=== PATIENT | female | born 1945 | race Hispanic/Latino ===

== ENCOUNTER 2016-12-16 05:28 | Emergency (ER) | payer MEDICARE, OTHER ==
[2016-12-16 05:37] VITALS: BMI 32.9
[2016-12-16 05:44] VITALS: RESP 18
--- NOTE | 2016-12-16 06:22 | ED PDOC ---
Arrival/HPI - General Chief Complaint: High Blood Pressure Time Seen by Provider: 12/16/16 05:45 Historian: Patient - History of Present Illness Narrative History of Present Illness (Text): 12/16/16 06:17 Concha Brown is a 71 year old female, whose past medical history includes hypertension and nephrectomy, who presents to the emergency department complaining of high blood pressure. Patient states she forgot to take her hypertension medication yesterday evening and woke up this morning with palpitations and right-sided headache. Patient took her blood pressure at home and noted it was elevated at 180 systolic. Patient states she took her medication this morning and notes some relief. Patient denies any fever, chills , chest pain, shortness of breath, nausea, vomiting, diarrhea, urinary symptoms , back pain, neck pain, dizziness, or any other complaints. Time/Duration: Other (today) Symptom Onset: Gradual Symptom Course: Unchanged Activities at Onset: Rest, Light Context: Home Past Medical History - Provider Review Nursing Documentation Reviewed: Yes - Infectious Disease Hx of Infectious Diseases: None - Reproductive Menopause: Yes - Cardiac Hx Hypertension: Yes - Neurological Hx Migraine: Yes - Renal Other/Comment: only 1 kidney - Gastrointestinal Hx Gastroesophageal Reflux: Yes - Psychiatric Hx Substance Use: No - Surgical History Other/Comment: kidney donor - Anesthesia Hx Anesthesia: Yes Hx Anesthesia Reactions: No Hx Malignant Hyperthermia: No Family/Social History - Physician Review Nursing Documentation Reviewed: Yes Family/Social History: No Known Family HX Smoking Status: Never Smoked Hx Alcohol Use: No Hx Substance Use: No Allergies/Home Meds Allergies/Adverse Reactions: Allergies acetaminophen [From Tylenol] Allergy (Verified 12/16/16 05:38) DIZZINESS hypotension cat dander Allergy (Verified 12/16/16 05:38) ITCHING codeine phosphate [From Tylenol-Codeine #3] Allergy (Verified 12/16/16 05:38) DIZZINESS hypotension Penicillins Allergy (Verified 12/16/16 05:38) DIZZINESS strawberry Allergy (Verified 12/16/16 05:38) RASH Review of Systems - Physician Review All systems were reviewed & negative as marked: Yes - Review of Systems Constitutional: Normal. absent: Fevers Eyes: Normal ENT: Normal Respiratory: Normal. absent: SOB, Cough Cardiovascular: Palpitations, Other (+high blood pressure). absent: Chest Pain Gastrointestinal: Normal. absent: Abdominal Pain, Diarrhea, Nausea, Vomiting Genitourinary Female: Normal. absent: Dysuria, Frequency, Hematuria, Urine Output Changes Musculoskeletal: Normal. absent: Back Pain, Neck Pain Skin: Normal. absent: Other Neurological: Headache. absent: Dizziness Endocrine: Normal Hemo/Lymphatic: Normal Psychiatric: Normal Physical Exam Vital Signs Reviewed: Yes Vital Signs Temp Pulse Resp BP Pulse Ox 12/16/16 05:42 97.9 F 78 18 179/79 H 99 Temperature: Afebrile Blood Pressure: Hypertensive Pulse: Regular Respiratory Rate: Normal Appearance: Positive for: Well-Appearing, Non-Toxic, Comfortable Pain Distress: None Mental Status: Positive for: Alert and Oriented X 3 - Systems Exam Head: Present: Atraumatic, Normocephalic Pupils: Present: PERRL Extroacular Muscles: Present: EOMI Conjunctiva: Present: Normal Mouth: Present: Moist Mucous Membranes Neck: Present: Normal Range of Motion Respiratory/Chest: Present: Clear to Auscultation, Good Air Exchange. No: Respiratory Distress, Accessory Muscle Use Cardiovascular: Present: Regular Rate and Rhythm, Normal S1, S2. No: Murmurs Abdomen: Present: Normal Bowel Sounds. No: Tenderness, Distention, Peritoneal Signs Back: Present: Normal Inspection Upper Extremity: Present: Normal Inspection. No: Cyanosis, Edema Lower Extremity: Present: Normal Inspection. No: Edema Neurological: Present: GCS=15, CN II-XII Intact, Speech Normal Skin: Present: Warm, Dry, Normal Color. No: Rashes Psychiatric: Present: Alert, Oriented x 3, Normal Insight, Normal Concentration Medical Decision Making ED Course and Treatment: 12/16/16 06:17 Impression: 71 year old female complaining of high blood pressure, palpitations, and headache. Plan: -- EKG -- CXR -- Labs, cardiac enzymes -- Reassess and disposition Progress Notes: Reviewed EKG, NSR at [address]-segment elevations or depressions, no T-wave inversions, normal intervals. - RAD Interpretation Radiology Orders: 12/16/16 06:22 CHEST PORTABLE [RAD] Stat - EKG Interpretation Interpreted by ED Physician: Yes Type: 12 lead EKG - Transfer of Care Patient signed out to Dr:: Gia Pending Labs:: Labs/CXR/EKG/reassess/final disposition - Scribe Statement The provider has reviewed the documentation as recorded by the Scribe Becca Mainor Provider Attestation: All medical record entries made by the Micah were at my direction and personally dictated by me. I have reviewed the chart and agree that the record accurately reflects my personal performance of the history, physical exam, medical decision making, and the department course for this patient. I have also personally directed, reviewed, and agree with the discharge instructions and disposition. Disposition/Present on Arrival - Present on Arrival Any Indicators Present on Arrival: No History of DVT/PE: No History of Uncontrolled Diabetes: No Urinary Catheter: No History of Decub. Ulcer: No History Surgical Site Infection Following: None - Disposition Have Diagnosis and Disposition been Completed?: No Diagnosis: Hypertension, Palpitations Disposition Time: 07:00 Condition: STABLE
[2016-12-16 07:11] LABS: HEMATOCRIT 38.9 % (36.0-48.0); MEAN CELL VOLUME 86.4 fL (80.0-105.0); MEAN CORPUSCULAR HEMOGLOBIN 29.1 pg (25.0-35.0); MEAN CORPUSCULAR HGB CONC 33.7 g/dl (31.0-37.0); RED CELL DISTRIBUTION WIDTH 13.9 % (11.5-14.5)
[2016-12-16 07:17] LABS: ALB/GLOB RATIO 1.2 (1.1-1.8); ALKALINE PHOSPHATASE 64 U/L (38-133); ALT/SGPT 30 U/L (7-56); AST/SGOT 42 U/L (15-39); BILIRUBIN,TOTAL 0.5 mg/dL (0.2-1.3); BLOOD UREA NITROGEN 18 mg/dL (7-21); CARBON DIOXIDE 26 mmol/L (21-33); CHLORIDE 105 mmol/L (95-110); GFR AFRICAN-AMERICAN > 60; GLUCOSE,RANDOM 99 mg/dL (70-110); SODIUM 142 mmol/L (132-148); TOTAL PROTEIN 7.9 g/dL (5.8-8.3)
--- NOTE | 2016-12-16 07:40 | ED PDOC ---
Physical Exam - Physical Exam Narrative Physical Exam (Text): Physical exam Patient appears age appropriate in no distress, speaking full sentences without difficulty - Systems Exam Head: Present: Atraumatic, Normocephalic Pupils: Present: PERRL Extroacular Muscles: Present: EOMI Conjunctiva: Present: Normal Mouth: Present: Moist Mucous Membranes Neck: Present: Normal Range of Motion. No: MIDLINE TENDERNESS, Paraspinal Tenderness Respiratory/Chest: Present: Clear to Auscultation, Good Air Exchange. No: Respiratory Distress, Accessory Muscle Use, Tachypneic Cardiovascular: Present: Regular Rate and Rhythm, Normal S1, S2, Peripheal Pulses Present. No: Murmurs Abdomen: Present: Normal Bowel Sounds. No: Tenderness, Distention, Peritoneal Signs, Rebound, Guarding Back: Present: Normal Inspection. No: Midline Tenderness, Paraspinal Tenderness Upper Extremity: Present: Normal Inspection. No: Cyanosis, Edema Lower Extremity: Present: Normal Inspection. No: Edema Neurological: Present: GCS=15, Speech Normal, cranial nerves II through XII fully intact with no cerebellar abnormality, neurosensory fully intact. No focal neurological deficits. Skin: Present: Warm, Dry, Normal Color. No: Rashes Lymphatic: Present: OX3, NI, NC Psychiatric: Present: Alert, Oriented x 3, Normal Insight, Normal Concentration Vital Signs Reviewed: Yes Vital Signs Temp Pulse Resp BP Pulse Ox 12/16/16 08:00 70 18 167/82 H 97 12/16/16 05:42 97.9 F 78 18 179/79 H 99 Temperature: Afebrile Blood Pressure: Hypertensive Pulse: Regular Respiratory Rate: Normal Appearance: Positive for: Well-Appearing Pain Distress: None Medical Decision Making ED Course and Treatment: 12/16/16 07:39 Signout from overnight, patient with a history of hypertension admits to noncompliance with her antihypertensives medications, presents the emergency department with elevated blood pressure reading at home. Contrary to previous note, patient denies having any palpitations or heart symptoms. Patient states that she checked her heart rate on the blood pressure monitor and it read 95. Patient denies any chest pain, shortness of breath, dyspnea on exertion, palpitations. Patient currently is asymptomatic and denies any complaints, states that she feels well and would like to be discharged home. Patient states that she has a primary physician with whom she will be able to follow-up in the next 1-2 days. EKG interpreted by ER physician. Normal sinus. No ST-segment elevations. Normal intervals. 12/16/16 08:24 Chest xray interpreted by ED physician shows no pneumothorax, no cardiomegaly, no infiltrates On reevaluation, patient remains asymptomatic. Patient denies any headache, denies blurry vision or shortness of breath, denies chest pain or dyspnea exertion. Patient has no focal neurological deficits. Patient instructed to follow-up with her primary physician Pt states she understands to return to the ER right away for new or worsening symptoms or for inability to f/u with PMD or specialist as instructed. Patient states that she fully agrees with and understands discharge instructions. States that she agrees with the plan and disposition. Verbalized and repeated discharge instructions and plan. I have given the patient opportunity to ask any additional questions. - Lab Interpretations Lab Results: 12/16/16 06:22 12/16/16 06:22 Lab Results 12/16/16 06:22: WBC 4.0 L, RBC 4.50, Hgb 13.1, Hct 38.9, MCV 86.4, MCH 29.1, MCHC 33.7, RDW 13.9, Plt Count 227, MPV 11.0, Sodium 142, Potassium 4.0, Chloride 105, Carbon Dioxide 26, Anion Gap 15, BUN 18, Creatinine 1.0, Est GFR ( Amer) > 60, Est GFR (Non-Af Amer) 55, Random Glucose 99, Calcium 10.0, Total Bilirubin 0.5, AST 42 H, ALT 30, Alkaline Phosphatase 64, Lactate Dehydrogenase 499, Total Creatine Kinase 84, Troponin I < 0.01, Total Protein 7.9, Albumin 4.3, Globulin 3.6, Albumin/Globulin Ratio 1.2 - RAD Interpretation Radiology Orders: 12/16/16 06:22 CHEST PORTABLE [RAD] Stat Disposition/Present on Arrival - Present on Arrival Any Indicators Present on Arrival: No History of DVT/PE: No History of Uncontrolled Diabetes: No Urinary Catheter: No History of Decub. Ulcer: No History Surgical Site Infection Following: None - Disposition Have Diagnosis and Disposition been Completed?: Yes Diagnosis: Hypertension Disposition: HOME/ ROUTINE Disposition Time: 08:26 Patient Plan: Discharge Patient Problems: Current Active Problems Problem Status Diagnosed Hypertension Acute Palpitations Acute Condition: STABLE Discharge Instructions (ExitCare): Hypertension (ED) Additional Instructions: PLEASE RETURN TO THE EMERGENCY DEPARTMENT FOR NEW OR WORSENING SYMPTOMS. RETURN RIGHT AWAY IF YOU CANNOT FOLLOW UP WITH YOUR PRIMARY CARE DOCTOR, CLINIC, OR SPECIALIST IN 1-2 DAYS.
[2016-12-16 07:45] LABS: TROPONIN I < 0.01 ng/mL
[2016-12-16 08:23] VITALS: BP 167/82; PULSE 70; O2SAT 97
[2016-12-16 08:36] VITALS: TEMP 98.4
--- NOTE | 2016-12-16 08:40 | RAD ---
HISTORY: palpitations COMPARISON: No prior. FINDINGS: LUNGS: No active pulmonary disease. PLEURA: No significant pleural effusion identified, no pneumothorax apparent. CARDIOVASCULAR: Normal. OSSEOUS STRUCTURES: No significant abnormalities. VISUALIZED UPPER ABDOMEN: Normal. OTHER FINDINGS: None. IMPRESSION: No active disease.
--- NOTE | 2016-12-16 12:44 | CARD ---
APPROVED REPORT EKG Measurement Heart [id number] <Conclusion> Normal sinus rhythm Normal ECG
== END 2016-12-16 08:50 | disposition home or self-care (01) ==
LOC: ED 05:28
DX: I10 Essential (primary) hypertension (principal); R00.2 Palpitations; Z90.5 Acquired absence of kidney

== ENCOUNTER 2018-09-16 08:57 | Outpatient (CLI) | payer MEDICARE, OTHER | END 2018-09-16 08:58 | disposition home or self-care (01) | LOC: RAD 08:57 ==

== ENCOUNTER 2019-01-16 20:15 | Observation (INO) | payer MEDICARE, OTHER ==
[2019-01-16 20:23] VITALS: BMI 33.5
[2019-01-16] MEDS ORDERED: DiphenhydrAMINE 50 mg/ml Inj IVP ONE (20:33)
[2019-01-16 20:50] LABS: HEMOGLOBIN 13.4 g/dL (12.0-16.0); MEAN CORPUSCULAR HEMOGLOBIN 28.3 pg (25.0-35.0); MEAN CORPUSCULAR HGB CONC 32.9 g/dl (31.0-37.0); MEAN PLATELET VOLUME 10.8 fl (7.0-11.0); RBC 4.73 10^6/uL (3.5-6.1); RED CELL DISTRIBUTION WIDTH 14.1 % (11.5-14.5); WHITE BLOOD COUNT 7.7 10^3/uL (4.5-11.0)
[2019-01-16 20:56] LABS: INR 1.05; PROTHROMBIN TIME 11.6 SECONDS (9.4-12.5)
[2019-01-16 21:00] LABS: ALB/GLOB RATIO 1.5 (1.1-1.8); ALBUMIN 4.6 g/dL (3.0-4.8); ALT/SGPT 16 U/L (7-56); AST/SGOT 33 U/L (14-36); BLOOD UREA NITROGEN 19 mg/dL (7-21); CALCIUM 10.4 mg/dL (8.4-10.5); GFR NON-AFRICAN AMERICAN 49
[2019-01-16 21:11] LABS: TROPONIN I < 0.01 ng/mL
--- NOTE | 2019-01-16 21:31 | ED PDOC ---
Arrival/HPI - General Chief Complaint: Palpitations Time Seen by Provider: 01/16/19 20:21 Historian: Patient, Family - History of Present Illness Narrative History of Present Illness (Text): 01/16/19 20:30 73 year old female, whose past medical history includes hypertension and nephrectomy, who presents to the emergency complaining of episodes of chest tightness and palpitations the other day and again today associated with dyspnea on exertion. Patient's family states patient possibly may be anxious over a family matter. However, patient states the symptoms appear different. Patient also with slight rash to her neck that she just noticed, but denies any itchiness. Patient denies any fever, chills, cough, nausea, vomiting, diarrhea, urinary symptoms, back pain, neck pain, leg pain, headache, dizziness, or any other complaints. Time/Duration: 24 hours Symptom Course: Intermittent Activities at Onset: Light Context: Home Past Medical History - Provider Review Nursing Documentation Reviewed: Yes - Infectious Disease Hx of Infectious Diseases: None - Cardiac Hx Hypertension: Yes - Neurological Hx Migraine: Yes - Renal Other/Comment: only 1 kidney - Gastrointestinal Hx Gastroesophageal Reflux: Yes - Psychiatric Hx Substance Use: No - Surgical History Other/Comment: kidney donor - Anesthesia Hx Anesthesia: Yes Hx Anesthesia Reactions: No Hx Malignant Hyperthermia: No Family/Social History - Physician Review Nursing Documentation Reviewed: Yes Family/Social History: No Known Family HX Smoking Status: Never Smoked Hx Alcohol Use: Yes Frequency of alcohol use: Socially Hx Substance Use: No Allergies/Home Meds Allergies/Adverse Reactions: Allergies cat dander Allergy (Verified 01/16/19 20:23) ITCHING codeine phosphate [From Tylenol-Codeine #3] Allergy (Verified 01/16/19 20:23) DIZZINESS hypotension Penicillins Allergy (Verified 01/16/19 20:23) DIZZINESS strawberry Allergy (Verified 01/16/19 20:23) RASH ibuprofen Adverse Reaction (Verified 01/16/19 20:27) PAIN Patient only has one kidney and is advised by PMD to avoid nephro-toxic med ications. Home Medications: Home Meds Medication Instructions Recorded Confirmed Atorvastatin [Lipitor] 10 mg PO DIN 01/16/19 01/16/19 Cinacalcet [Sensipar] 30 mg PO DAILY 01/16/19 01/16/19 amLODIPine [Norvasc] 10 mg PO DAILY 01/16/19 01/16/19 Review of Systems - Physician Review All systems were reviewed & negative as marked: Yes - Review of Systems Constitutional: absent: Fevers, Other (chills) Cardiovascular: Chest Pain, Palpitations, CHRISTINA Gastrointestinal: absent: Diarrhea, Nausea, Vomiting Genitourinary Female: absent: Dysuria, Frequency, Hematuria Musculoskeletal: absent: Back Pain, Neck Pain, Other (leg pain) Skin: Rash. absent: Pruritis Neurological: absent: Headache, Dizziness Physical Exam Vital Signs Reviewed: Yes Vital Signs Temp Pulse Resp BP Pulse Ox 01/16/19 20:27 97.7 F 105 H 18 156/72 H 99 01/16/19 20:26 97.7 F 109 H 12 156/72 H 100 Temperature: Afebrile Blood Pressure: Hypertensive Pulse: Tachycardic Respiratory Rate: Normal Appearance: Positive for: Well-Appearing, Non-Toxic, Comfortable Pain Distress: None Mental Status: Positive for: Alert and Oriented X 3 - Systems Exam Head: Present: Atraumatic, Normocephalic Pupils: Present: PERRL Extroacular Muscles: Present: EOMI Conjunctiva: Present: Normal Mouth: Present: Moist Mucous Membranes Neck: Present: Normal Range of Motion Respiratory/Chest: Present: Clear to Auscultation, Good Air Exchange. No: Respiratory Distress, Accessory Muscle Use Cardiovascular: Present: Regular Rate and Rhythm, Normal S1, S2. No: Murmurs Abdomen: No: Tenderness, Distention, Peritoneal Signs Back: Present: Normal Inspection Upper Extremity: Present: Normal Inspection. No: Cyanosis, Edema Lower Extremity: Present: Normal Inspection. No: Edema Neurological: Present: GCS=15, Speech Normal Skin: Present: Warm, Dry, Normal Color, Erythematous (slight patchy erythematous flush to the neck ). No: Other (urticaria) Psychiatric: Present: Alert, Oriented x 3, Normal Insight, Normal Concentration Medical Decision Making ED Course and Treatment: 01/16/19 20:30 Impression: 73 year old female presents complaining of chest tightness and palpitations the other day and again today associated with dyspnea on exertion. Also noted a sl ight rash to her neck. Plan: -- EKG -- Labs -- Chest X-ray -- Benadryl -- Reassess and disposition Prior Visits: Notes and results from previous visits were reviewed. Progress Notes: 01/16/19 21:12 CXR Impression: As read by me, no acute process. 01/16/19 22:00 EKG shows Sinus Tachycardia at 110 [address]PM with non-specific st/t changes. Interpreted by me. 01/16/19 22:[address] Patel who is aware and agrees with the plan. Accepts patient into his service. - Lab Interpretations Lab Results: PT 11.6 SECONDS (9.4-12.5) 01/16/19 20:40 INR 1.05 01/16/19 20:40 APTT 34.0 Seconds (26.9-38.3) 01/16/19 20:40 D-Dimer, Quantitative < 200 ng/mlDDU (0-243) 01/16/19 20:40 Troponin I < 0.01 ng/mL 01/16/19 20:40 Total Bilirubin 0.7 mg/dL (0.2-1.3) 01/16/19 20:40 AST 33 U/L (14-36) 01/16/19 20:40 ALT 16 U/L (7-56) 01/16/19 20:40 Alkaline Phosphatase 80 U/L (38-126) 01/16/19 20:40 Total Protein 7.8 g/dL (5.8-8.3) 01/16/19 20:40 Albumin 4.6 g/dL (3.0-4.8) 01/16/19 20:40 Globulin 3.2 gm/dL 01/16/19 20:40 Albumin/Globulin Ratio 1.5 (1.1-1.8) 01/16/19 20:40 I have reviewed the lab results: Yes - RAD Interpretation Radiology Orders: 01/16/19 20:32 CHEST PORTABLE [RAD] Stat Dental Services Director: ED Physician - EKG Interpretation Interpreted by ED Physician: Yes Type: 12 lead EKG - Medication Orders Current Medication Orders: Discontinued Medications Diphenhydramine HCl (Benadryl) 25 mg IVP ONCE ONE Stop: 01/16/19 20:34 Last Admin: 01/16/19 20:50 Dose: Not Given Non-Admin Reason: Patient Refused - Scribe Statement The provider has reviewed the documentation as recorded by the Micah Ruffin Provider Scribe Attestation: All medical record entries made by the Scribe were at my direction and personally dictated by me. I have reviewed the chart and agree that the record accurately reflects my personal performance of the history, physical exam, medical decision making, and the department course for this patient. I have also personally directed, reviewed, and agree with the discharge instructions and disposition. Disposition/Present on Arrival - Present on Arrival Any Indicators Present on Arrival: No History of DVT/PE: No History of Uncontrolled Diabetes: No Urinary Catheter: No History of Decub. Ulcer: No History Surgical Site Infection Following: None - Disposition Have Diagnosis and Disposition been Completed?: Yes Diagnosis: Chest pain, Palpitations Disposition: HOSPITALIZED Disposition Time: 22:17 Patient Problems: Current Active Problems Problem Status Onset Chest pain Acute Palpitations Acute Condition: STABLE
--- NOTE | 2019-01-17 08:07 | CP.PCM.HP ---
<AlfredoTesfaye - Last Filed: 01/17/19 10:09> History of Present Illness - History of Present Illness History of Present Illness: Tesfaye Fuentes D.O. PGY-3, Internal Medicine Resident, Dr. Patel's Service, H&P CC: Chest discomfort and palpitations 73-year-old female with a past medical history of hypertension, hyperlipidemia, status post unilateral nephrectomy for donation to her brother who has a history of polycystic kidney disease, who presents for complaints of chest discomfort and palpitations earlier in the day. Patient denies ever having similar this before. Patient states she was planning a celebration for her granddaughter and was out getting supplies. Patient tried a small amount of a fruit wine that has been sampled. Patient then went home and the family ordered pizza. Patient states that she is unsure whether the wine or the pizza could have been responsible what shortly after ingesting these 2 things she began to have an unclear sensation come over her, states that she had palpitations, her arms are weak, and that her face was beet red. Patient states that she is allergic to some berries and it was a different one that may have contained berries. Otherwise unsure of any other potential exposures that could have caused this. Patient states it is a very small amount of wine. Patient denies pain per se, just the after mentioned symptoms. Patient does have a lot of stress at this time given that she is taking care of her who has Alzheimer's disease and diabetes. Patient states that he is a lot of work and is progressively becoming bedbound. This is a great source of stress and anxiety for her. Otherwise denies any fevers, chills, nausea, vomiting, diarrhea, constipation, lightheadedness, dizziness, chest pain, shortness of breath at this time, or other concerning symptoms. Is currently completely asymptomatic. States the episode was very quick. Of note, patient follows up with nephrology and endocrinology. Patient states that she is on cinacalcet because she has had high calcium in the past. When asked specifically if she has hyperparathyroidism patient states that she has been told by her primary medical doctor that she likely does have hyperparathyroidism. Patient is currently undergoing outpatient work-up for this. PMH: As above PSH: Oophorectomy, hysterectomy, nephrectomy SH: Denies smoking, social EtOH use only, denies illicit drug use FH: Denies Meds: Reviewed with patient Allergies: Cat dander, codeine, penicillins, strawberry, ibuprofen Present on Admission - Present on Admission Any Indicators Present on Admission: No Review of Systems - Review of Systems All systems: reviewed and no additional remarkable complaints except (as per HPI) Past Patient History - Infectious Disease Hx of Infectious Diseases: None - Past Social History Smoking Status: Never Smoked - CARDIAC Hx Cardiac Disorders: Yes Hx Hypercholesterolemia: Yes Hx Hypertension: Yes - PULMONARY Hx Respiratory Disorders: Yes Hx Bronchitis: Yes - NEUROLOGICAL Hx Neurological Disorder: Yes Hx Migraine: Yes (used to get cluster baker) - HEENT Hx HEENT Problems: No - RENAL Hx Chronic Kidney Disease: No Other/Comment: donated l kindey to brother - ENDOCRINE/METABOLIC Hx Endocrine Disorders: Yes Other/Comment: poss nodule on thyroid - HEMATOLOGICAL/ONCOLOGICAL Hx Blood Disorders: No - INTEGUMENTARY Hx Dermatological Problems: No - MUSCULOSKELETAL/RHEUMATOLOGICAL Hx Falls: No - GASTROINTESTINAL Hx Gastrointestinal Disorders: Yes Other/Comment: GERD - GENITOURINARY/GYNECOLOGICAL Hx Genitourinary Disorders: Yes Other/Comment: hysterect/ooprectomy/etopic preg - PSYCHIATRIC Hx Psychophysiologic Disorder: No - SURGICAL HISTORY Hx Surgeries: Yes Hx Hysterectomy: Yes Other/Comment: ooprectomy and etopic preg - ANESTHESIA Hx Anesthesia: Yes Hx Anesthesia Reactions: No Hx Malignant Hyperthermia: No Meds Home Medications: Home Medication List Medication Instructions Recorded Confirmed Type Metoprolol Tartrate [Lopressor] 12.5 mg PO BRKDIN #60 tab 01/17/19 Rx Allergies/Adverse Reactions: Allergies Allergy/AdvReac Type Severity Reaction Status Date / Time cat dander Allergy ITCHING Verified 01/16/19 20:23 codeine phosphate Allergy DIZZINESS Verified 01/16/19 20:23 [From Tylenol-Codeine #3] Penicillins Allergy DIZZINESS Verified 01/16/19 20:23 strawberry Allergy RASH Verified 01/16/19 20:23 ibuprofen AdvReac PAIN Verified 01/16/19 20:27 Physical Exam - Constitutional Appears: Non-toxic, No Acute Distress - Head Exam Head Exam: ATRAUMATIC, NORMOCEPHALIC - Eye Exam Eye Exam: EOMI, PERRL. absent: Scleral icterus - ENT Exam ENT Exam: Mucous Membranes Moist, Normal Oropharynx - Neck Exam Neck exam: Positive for: Normal Inspection. Negative for: Lymphadenopathy, Tenderness - Respiratory Exam Respiratory Exam: Clear to Auscultation Bilateral. absent: Rales, Rhonchi, Wheezes - Cardiovascular Exam Cardiovascular Exam: RRR, +S1, +S2. absent: Gallop, Rubs - GI/Abdominal Exam GI & Abdominal Exam: Normal Bowel Sounds, Soft. absent: Distended, Tenderness - Extremities Exam Extremities exam: Positive for: normal capillary refill, pedal edema (trace). Negative for: calf tenderness - Neurological Exam Neurological exam: Alert, CN II-XII Intact, Oriented x3 - Psychiatric Exam Psychiatric exam: Normal Affect, Normal Mood - Skin Skin Exam: Dry, Warm Results - Vital Signs Recent Vital Signs: Last Vital Signs Temp 97.8 F 01/17/19 00:59 Pulse 85 01/17/19 05:59 Resp 18 01/17/19 01:21 BP 126/84 01/17/19 00:59 Pulse Ox 96 01/17/19 00:59 - Labs Result Diagrams: 01/16/19 20:40 01/16/19 20:40 Labs: Laboratory Results - last 24 hr 01/16/19 01/16/19 01/16/19 20:40 20:40 20:40 WBC RBC Hgb Hct MCV MCH MCHC RDW Plt Count MPV PT 11.6 INR 1.05 APTT 34.0 D-Dimer, Quantitative < 200 Sodium 139 Potassium 3.7 Chloride 103 Carbon Dioxide 25 Anion Gap 14 BUN 19 Creatinine 1.1 Est GFR ( Amer) 59 Est GFR (Non-Af Amer) 49 Random Glucose 157 H Calcium 10.4 Total Bilirubin 0.7 AST 33 ALT 16 Alkaline Phosphatase 80 Lactate Dehydrogenase 555 Total Creatine Kinase 175 Troponin I < 0.01 Total Protein 7.8 Albumin 4.6 Globulin 3.2 Albumin/Globulin Ratio 1.5 01/16/19 20:40 WBC 7.7 RBC 4.73 Hgb 13.4 Hct 40.7 MCV 86.0 MCH 28.3 MCHC 32.9 RDW 14.1 Plt Count 252 MPV 10.8 PT INR APTT D-Dimer, Quantitative Sodium Potassium Chloride Carbon Dioxide Anion Gap BUN Creatinine Est GFR ( Amer) Est GFR (Non-Af Amer) Random Glucose Calcium Total Bilirubin AST ALT Alkaline Phosphatase Lactate Dehydrogenase Total Creatine Kinase Troponin I Total Protein Albumin Globulin Albumin/Globulin Ratio Assessment & Plan - Assessment and Plan (Free Text) Assessment: 73-year-old female with a past medical history of hypertension, hyperlipidemia, status post unilateral nephrectomy for donation to her brother who has a history of polycystic kidney disease, who presents for complaints of chest discomfort and palpitations earlier in the day. Plan: 1. Chest discomfort and palpitations 2. Hypertension 3. Hyperlipidemia 4. Status post nephrectomy 5. Obesity Patient placed in observation. Troponin is negative x1. Will repeat. EKG revealed sinus tachycardia. On telemetry patient now in normal sinus rhythm. Etiology likely noncardiac in nature however we will obtain a cardiology consultation. We will continue amlodipine for hypertension. We will continue atorvastatin for hyperlipidemia. We will continue her home cinacalcet for her history of hypercalcemia. We will also obtain TSH and lipid panel. Lifestyle modifications discussed with patient. We will follow clinically. Patient was seen and examined and case discussed at length with attending physician. - Date & Time Date: 01/17/19 Time: 05:10 <Manjeet Patel S - Last Filed: 01/17/19 14:25> Results - Vital Signs Recent Vital Signs: Last Vital Signs Temp 98.2 F 01/17/19 06:00 Pulse 80 01/17/19 09:48 Resp 20 01/17/19 06:00 BP 126/74 01/17/19 09:50 Pulse Ox 98 01/17/19 09:48 - Labs Result Diagrams: 01/16/19 20:40 01/16/19 20:40 Labs: Laboratory Results - last 24 hr 01/16/19 01/16/19 01/16/19 20:40 20:40 20:40 WBC RBC Hgb Hct MCV MCH MCHC RDW Plt Count MPV PT 11.6 INR 1.05 APTT 34.0 D-Dimer, Quantitative < 200 Sodium 139 Potassium 3.7 Chloride 103 Carbon Dioxide 25 Anion Gap 14 BUN 19 Creatinine 1.1 Est GFR ( Amer) 59 Est GFR (Non-Af Amer) 49 Random Glucose 157 H Hemoglobin A1c Calcium 10.4 Total Bilirubin 0.7 AST 33 ALT 16 Alkaline Phosphatase 80 Lactate Dehydrogenase 555 Total Creatine Kinase 175 Troponin I < 0.01 Total Protein 7.8 Albumin 4.6 Globulin 3.2 Albumin/Globulin Ratio 1.5 Triglycerides Cholesterol LDL Cholesterol Direct HDL Cholesterol TSH 3rd Generation 01/16/19 01/17/19 01/17/19 20:40 07:00 07:00 WBC 7.7 RBC 4.73 Hgb 13.4 Hct 40.7 MCV 86.0 MCH 28.3 MCHC 32.9 RDW 14.1 Plt Count 252 MPV 10.8 PT INR APTT D-Dimer, Quantitative Sodium Potassium Chloride Carbon Dioxide Anion Gap BUN Creatinine Est GFR ( Amer) Est GFR (Non-Af Amer) Random Glucose Hemoglobin A1c 5.9 Calcium Total Bilirubin AST ALT Alkaline Phosphatase Lactate Dehydrogenase 451 Total Creatine Kinase 132 Troponin I < 0.01 Total Protein Albumin Globulin Albumin/Globulin Ratio Triglycerides 42 Cholesterol 139 LDL Cholesterol Direct 53 HDL Cholesterol 82 H TSH 3rd Generation 01/17/19 07:00 WBC RBC Hgb Hct MCV MCH MCHC RDW Plt Count MPV PT INR APTT D-Dimer, Quantitative Sodium Potassium Chloride Carbon Dioxide Anion Gap BUN Creatinine Est GFR ( Amer) Est GFR (Non-Af Amer) Random Glucose Hemoglobin A1c Calcium Total Bilirubin AST ALT Alkaline Phosphatase Lactate Dehydrogenase Total Creatine Kinase Troponin I Total Protein Albumin Globulin Albumin/Globulin Ratio Triglycerides Cholesterol LDL Cholesterol Direct HDL Cholesterol TSH 3rd Generation 3.63 Assessment & Plan - Assessment and Plan (Free Text) Plan: Pt seen and examined by me. I have reviewed the note of the medical social worker and I agree with it. I have discussed the assessment and plan with the resident. I have reviewed the medications and the last labs.
[2019-01-17 08:12] LABS: HDL CHOLESTEROL 82 mg/dL (29-60)
[2019-01-17 08:22] LABS: TROPONIN I < 0.01 ng/mL
[2019-01-17 08:23] LABS: LDL CHOLESTEROL 53 mg/dL (0-129)
--- NOTE | 2019-01-17 09:00 | CP.PCM.CON ---
History of Present Illness - History of Present Illness History of Present Illness: Awake, alert, no distress, denies chest pain Reason for consultation: Cardiac evaluation of palpitation Brief history of present illness: A 73 year old obese female who came in to the ER due to palpitations and not feeling good. She was at the grocery store and had small amount wine tasting. When she got home she did not feel good and felt slight rash on her face and palpitations. She claimed to have had felt palpitations for few seconds before but resolved immediately. 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 History of hypertension, nephrectomy (donated kidney to brother), hypercholesterolemia, migraine, GERD,bronchitis, questionable thyroid nodule, hysterectomy. Seen and examined by me and Dr. Cary Review of Systems - Review of Systems All systems: reviewed and no additional remarkable complaints except Review of Systems: as per HPI Past Patient History - Infectious Disease Hx of Infectious Diseases: None - Past Social History Smoking Status: Never Smoked - CARDIAC Hx Cardiac Disorders: Yes Hx Hypercholesterolemia: Yes Hx Hypertension: Yes - PULMONARY Hx Respiratory Disorders: Yes Hx Bronchitis: Yes - NEUROLOGICAL Hx Neurological Disorder: Yes Hx Migraine: Yes (used to get cluster baker) - HEENT Hx HEENT Problems: No - RENAL Hx Chronic Kidney Disease: No Other/Comment: donated l kindey to brother - ENDOCRINE/METABOLIC Hx Endocrine Disorders: Yes Other/Comment: poss nodule on thyroid - HEMATOLOGICAL/ONCOLOGICAL Hx Blood Disorders: No - INTEGUMENTARY Hx Dermatological Problems: No - MUSCULOSKELETAL/RHEUMATOLOGICAL Hx Falls: No - GASTROINTESTINAL Hx Gastrointestinal Disorders: Yes Other/Comment: GERD - GENITOURINARY/GYNECOLOGICAL Hx Genitourinary Disorders: Yes Other/Comment: hysterect/ooprectomy/etopic preg - PSYCHIATRIC Hx Psychophysiologic Disorder: No - SURGICAL HISTORY Hx Surgeries: Yes Hx Hysterectomy: Yes Other/Comment: ooprectomy and etopic preg - ANESTHESIA Hx Anesthesia: Yes Hx Anesthesia Reactions: No Hx Malignant Hyperthermia: No Meds Allergies/Adverse Reactions: Allergies Allergy/AdvReac Type Severity Reaction Status Date / Time cat dander Allergy ITCHING Verified 01/16/19 20:23 codeine phosphate Allergy DIZZINESS Verified 01/16/19 20:23 [From Tylenol-Codeine #3] Penicillins Allergy DIZZINESS Verified 01/16/19 20:23 strawberry Allergy RASH Verified 01/16/19 20:23 ibuprofen AdvReac PAIN Verified 01/16/19 20:27 - Medications Medications: Current Medications Amlodipine Besylate (Norvasc) 10 mg PO DAILY IZZY Atorvastatin Calcium (Lipitor) 10 mg PO DIN IZZY Cinacalcet (Sensipar) 30 mg PO DAILY IZZY Physical Exam - Constitutional Appears: Non-toxic, No Acute Distress - Head Exam Head Exam: NORMAL INSPECTION, NORMOCEPHALIC - Eye Exam Eye Exam: Normal appearance Pupil Exam: NORMAL ACCOMODATION - ENT Exam ENT Exam: Mucous Membranes Moist, Normal Exam - Neck Exam Neck exam: Positive for: Full Rom, Normal Inspection - Respiratory Exam Respiratory Exam: Decreased Breath Sounds, Clear to Auscultation Bilateral, NORMAL BREATHING PATTERN - Cardiovascular Exam Cardiovascular Exam: REGULAR RHYTHM, +S1, +S2 - GI/Abdominal Exam GI & Abdominal Exam: Normal Bowel Sounds, Soft - Extremities Exam Extremities exam: Positive for: full ROM, normal capillary refill - Neurological Exam Neurological exam: Alert, Oriented x3 - Psychiatric Exam Psychiatric exam: Normal Affect, Normal Mood - Skin Skin Exam: Dry, Normal Color, Warm Results - Vital Signs Recent Vital Signs: Last Vital Signs Temp 97.8 F 01/17/19 00:59 Pulse 85 01/17/19 05:59 Resp 18 01/17/19 01:21 BP 126/84 01/17/19 00:59 Pulse Ox 96 01/17/19 00:59 - Labs Result Diagrams: 01/16/19 20:40 01/16/19 20:40 Labs: Laboratory Results - last 24 hr 01/16/19 01/16/19 01/16/19 20:40 20:40 20:40 WBC RBC Hgb Hct MCV MCH MCHC RDW Plt Count MPV PT 11.6 INR 1.05 APTT 34.0 D-Dimer, Quantitative < 200 Sodium 139 Potassium 3.7 Chloride 103 Carbon Dioxide 25 Anion Gap 14 BUN 19 Creatinine 1.1 Est GFR ( Amer) 59 Est GFR (Non-Af Amer) 49 Random Glucose 157 H Calcium 10.4 Total Bilirubin 0.7 AST 33 ALT 16 Alkaline Phosphatase 80 Lactate Dehydrogenase 555 Total Creatine Kinase 175 Troponin I < 0.01 Total Protein 7.8 Albumin 4.6 Globulin 3.2 Albumin/Globulin Ratio 1.5 Triglycerides Cholesterol LDL Cholesterol Direct HDL Cholesterol 01/16/19 01/17/19 20:40 07:00 WBC 7.7 RBC 4.73 Hgb 13.4 Hct 40.7 MCV 86.0 MCH 28.3 MCHC 32.9 RDW 14.1 Plt Count 252 MPV 10.8 PT INR APTT D-Dimer, Quantitative Sodium Potassium Chloride Carbon Dioxide Anion Gap BUN Creatinine Est GFR ( Amer) Est GFR (Non-Af Amer) Random Glucose Calcium Total Bilirubin AST ALT Alkaline Phosphatase Lactate Dehydrogenase 451 Total Creatine Kinase 132 Troponin I < 0.01 Total Protein Albumin Globulin Albumin/Globulin Ratio Triglycerides 42 Cholesterol 139 LDL Cholesterol Direct 53 HDL Cholesterol 82 H Assessment & Plan - Assessment and Plan (Free Text) Assessment: A 73 year old obese female who came in to the ER due to palpitations and not feeling good. Denies chest pain. She was at the grocery store and had small amount wine tasting. When she got home she did not feel good and felt slight rash on her face and palpitations. She has allergy to strawberry. She claimed to have had felt palpitations last week for few seconds but resolved immediately. 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 History of hypertension, nephrectomy (donated kidney to brother), hypercholesterolemia, migraine, GERD,bronchitis, questionable thyroid nodule, hysterectomy. [place] [facility] [place] Claimed to have stress test [address] Noyola but not sure of results. Does not want to follow up with Dr. Tyson (partner of Dr. Noyola). follows up with Dr. Muro. Denies chest pain or palpitations. She was given Benadryl IV in ER. Symptoms resolved. EKG normal sins rhythm. Chest X ray unremarkable. Troponin normal x 2. TSH within normal limits. Rule out acute coronary syndrome. No evidence of myocardial ischemia. Feels better. Telemetry NSR,Heart rate 70-80's. Blood pressure stable. Will schedule for out patient stress test and echocardiogram for risk stratification. Low dose betablocker. May discharge from cardiac standpoint. Plan: Feels better, no distress Heart rate 70-80's. Blood pressure stable. Cardiac status stable Will schedule for out patient stress test and echocardiogram On Norvasc 10 mg daily, Lipitor 10 mg daily Low dose betablocker Continue current medications May discharge from cardiac standpoint Follow up in office 2-3 weeks Plan and treatment discussed with Dr. Cary Thank you Dr. Patel for the opportunity of taking care of Concha Brown - Date & Time Date: 01/17/19 Time: 07:00
--- NOTE | 2019-01-17 09:14 | RAD ---
Date of service: 01/16/2019 HISTORY: chest pain COMPARISON: Chest radiograph dated 12/16/2016. TECHNIQUE: 1 view obtained. FINDINGS: LUNGS: No active pulmonary disease. PLEURA: No significant pleural effusion identified, no pneumothorax apparent. CARDIOVASCULAR: Aortic atherosclerotic calcifications. Cardiomediastinal silhouette stably enlarged. OSSEOUS STRUCTURES: Scoliosis. Unchanged. VISUALIZED UPPER ABDOMEN: Normal. OTHER FINDINGS: None. IMPRESSION: No active disease.
[2019-01-17 09:50] VITALS: BP 126/74
[2019-01-17 10:16] VITALS: RESP 20; TEMP 98.2
[2019-01-17 10:26] VITALS: PULSE 80; O2SAT 98
--- NOTE | 2019-01-17 10:45 | CARD ---
APPROVED REPORT Date of service: 01/16/2019 EKG Measurement Heart [id number] <Conclusion> Sinus tachycardia Otherwise normal ECG
--- NOTE | 2019-01-18 02:45 | DS ---
HISTORY AND PHYSICAL WELL A DISCHARGE SUMMARY HISTORY OF PRESENT ILLNESS: The patient was seen and examined. I do agree with the note of the center medical specialist. I was involved in the plan of care. The patient came into the hospital with chest pain and palpitations. The patient was seen by Cardiology. She had cardiac enzymes done, which were negative. She does have risk factors for dyslipidemia and hypertension. She will need an outpatient stress test as well as an echo. I did speak to Dr. Cary, the electrical assemblies supervisor who will follow her up as an outpatient. The patient had troponin which were negative. She had a LDL of 83. She had a TSH of 3.6. The patient had an EKG that showed no significant abnormalities. She is going to be on amlodipine for her hypertension. She is on cinacalcet for hyperparathyroidism. She has a history of having a nephrectomy because she gave a kidney to her brother. She is going to be discharged home and followed up as an outpatient with the primary care doctor, Dr. Cary. CONDITION: Stable. ACTIVITIES: Increase as tolerated. The patient was seen and examined. I do agree with the note of the center medical specialist and I was involved in the plan of care. Manjeet Patel MD
== END 2019-01-17 10:48 | disposition home or self-care (01) ==
LOC: ED 20:15 → ERH 22:20 → 3RSO 01-17 00:54
PROVIDERS: ADMIT Internal Medicine Nephrology; ATTEND Internal Medicine Nephrology
DX: R07.89 Other chest pain (principal); R00.2 Palpitations; I10 Essential (primary) hypertension; E21.3 Hyperparathyroidism, unspecified; E78.5 Hyperlipidemia, unspecified; K21.9 Gastro-esophageal reflux disease without esophagitis; E66.9 Obesity, unspecified; Z68.33 Body mass index [BMI] 33.0-33.9, adult; E78.00 Pure hypercholesterolemia, unspecified; G43.909 Migraine, unspecified, not intractable, without status migrainosus; Z88.0 Allergy status to penicillin; Z52.4 Kidney donor; Z90.5 Acquired absence of kidney; Z82.71 Family history of polycystic kidney
CPT/HCPCS: 36415; 71045; 80053; 80061; 82550; 83036; 83615; 84443; 84484; 85027; 85378; 85610; 85730; 93005; 99285; G0378